=== PATIENT | female | born 1960 | race Caucasian/White ===

== ENCOUNTER 2021-08-03 08:41 | Day surgery (SDC) | payer BC, OTHER ==
[~2021-08-03] VITALS: Ht 170.2 cm; Wt 154.2 kg
[~2021-08-03 08:41] MED LIST: AMOXICILLIN 50500 MG PO; ASA81BEC PO; AZELASTINE137 MCG/0. NASAL; BENTYL 20 MG TA20 M1 PO; CARVEDILOL25 MG PO; DULOXETINE HCL30 MG PO; EZETIMIBE10 MG PO; FENOFIBRATE145 M1 PO; FISH OIL 1,001000 M2 PO; FLONASE 0.05%50 MCG NASAL; FLOVENT DISKU100 MCG INH; FLOVENT HFA 1110 MCG INH; GLIMEPIRIDE1 MG PO; HYCET 7.5 MG-3473 ML PO; HYDROCODON-ACE1 EAC7 PO; IBUPROFEN 800800 M1 PO; LEVOTHYROXIN0.175 MG PO; LEVOTHYROXINE200 MC1 PO; LISINOPRIL10 MG PO; MOBIC15 MG PO; MULTI VITAMIN1 EACH PO; NABUMETONE 500500 M2 PO; NEURONTIN 300300 M1 PO; OMEPRAZOLE40 MG PO; ONDANSETRON HCL4 M3 PO; OZEMPIC1 MG/0.71 SUBQ; PROMS25 WY RECTAL; PROTONIX40 M1 PO; ROSUVASTATIN CA40 MG PO; SIMVASTATIN20 MG PO; VALSARTAN320 MG PO; WELLBUTRIN75 MG PO
[2021-08-03 10:14] VITALS: BP 138/77
--- NOTE | 2021-08-03 12:55 | O ---
[facility] [place] [address] OPERATIVE REPORT Name: YANNICK LINCOLN Room #: 150-2 [facility]..#: [id number] Admission: 08/03/21 Attend Phys: Matt Ordonez MD Discharge: Date of : 60 Report #: [id number] THIS REPORT FOR: cc: Jenae Burns MD, Paula V. MD Clymer,Matt Boyle MD ~ DATE OF SERVICE: 08/03/2021 PREOPERATIVE DIAGNOSIS: Left carpal tunnel syndrome. POSTOPERATIVE DIAGNOSIS: Left carpal tunnel syndrome. PROCEDURE: Left carpal tunnel release. SURGEON: Matt Ordonez MD INDICATIONS: This very heavy 60-year-old female has problems with bilateral hand pain, numbness, tingling and weakness. She has had previous EMG study on the right side, which demonstrated carpal tunnel disease. Now, her left hand symptoms are more severe and she has decided to go ahead with left carpal tunnel release surgery. DESCRIPTION OF PROCEDURE: The patient was taken to the operating room where she was placed under brief general anesthetic. The left arm and hand were meticulously prepped and draped. An Esmarch bandage was used to exsanguinate the hand and left at the mid forearm as a gentle tourniquet. A longitudinal skin incision was made just ulnar to the proximal palmar crease in line with the fourth ray. This was carefully extended through subcutaneous tissues and the transverse carpal ligament was exposed. This was incised under direct visualization. The median nerve was identified and protected with a small groove director. The dissection was extended in a subcutaneous fashion, both proximally and distally to assure that the entire carpal tunnel was released. No other abnormalities were identified. The wound was gently irrigated and then closed using 4-0 nylon sutures in the skin. The Esmarch bandage was removed. Gentle pressure was applied until excellent hemostasis was confirmed. The subcutaneous tissues were injected with about 4 mL of 0.5% Marcaine. A sterile dressing was applied. The patient was awakened and returned to recovery room. She will be monitored there for a short period and then discharged home. I will plan to see her back in the office in 2 weeks for followup and suture removal. <ELECTRONICALLY SIGNED> By: Matt Ordonez MD 08/03/21 [id number] Matt Ordonez MD /nt
[2021-08-03 12:56] VITALS: BP 138/77
[2021-08-03 12:57] VITALS: BP 138/77
== END 2021-08-03 13:45 | disposition home or self-care (01) ==
LOC: OR 08:41 → TBA 12:34 → OR 13:45
PROVIDERS: ATTEND Orthopaedic Surgery
DX: G56.02 Carpal tunnel syndrome, left upper limb (principal); I10 Essential (primary) hypertension; E03.9 Hypothyroidism, unspecified; K21.9 Gastro-esophageal reflux disease without esophagitis; E11.9 Type 2 diabetes mellitus without complications; G47.30 Sleep apnea, unspecified; Z98.890 Other specified postprocedural states; Z79.899 Other long term (current) drug therapy; Z90.49 Acquired absence of other specified parts of digestive tract; Z85.3 Personal history of malignant neoplasm of breast; Z20.822 Contact with and (suspected) exposure to COVID-19; Z90.710 Acquired absence of both cervix and uterus; Z79.82 Long term (current) use of aspirin
CPT/HCPCS: 50010; 50101; 50386; 56526; 57091; 62110; 62900; 70005